=== PATIENT | male | born 2005 | race Two or more races ===

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

== ENCOUNTER 2023-03-28 22:07 | Emergency (ER) | payer OTHER ==
[~2023-03-28] VITALS: Ht 162.6 cm; Wt 72.7 kg
[2023-03-28 22:55] LABS: Alanine Aminotransferase 65 U/L (7-40); Albumin 4.7 g/dL (3.2-4.8); Alkaline Phosphatase 125 U/L (46-116); Anion Gap 9 (5-15); Aspartate Aminotransferase 30 U/L (13-40); BUN/Creatinine Ratio 9.2 (10.0-20.0); Bilirubin, Total 0.9 mg/dL (0.2-1.0); Blood Urea Nitrogen 8 mg/dL (9-23); Calcium 8.9 mg/dL (8.7-10.4); Carbon Dioxide 21 mmol/L (20-30); Chloride 105 mmol/L (98-107); Glucose 133 mg/dL (74-106); Potassium 3.5 mmol/L (3.5-5.1); Sodium 135 mmol/L (136-145); Total Protein 7.9 g/dL (5.7-8.2)
[2023-03-28 23:04] LABS: Basophils # (auto) 0.1 10 ^3/uL (0-0.2); Basophils % (auto) 0.7 % (0.0-2.0); Eosinophils # (auto) 0.1 10 ^3/uL (0-0.8); Eosinophils % (auto) 1.4 % (0.0-7.0); Hematocrit 47.8 % (41.0-53.0); Hemoglobin 16.8 g/dL (13.5-17.5); Lymphocytes # (auto) 1.1 10 ^3/uL (0.4-5.4); Lymphocytes % (auto) 15.2 % (10.0-50.0); Mean Corpuscular Hemoglobin 30.6 pg (28.0-32.0); Mean Corpuscular Hgb Conc. 35.2 g/dL (32.0-36.0); Mean Corpuscular Volume 86.9 fL (80.0-100.0); Neutrophils # (auto) 5.2 10 ^3/uL (1.6-8.6); Neutrophils % (auto) 69.7 % (37.0-80.0); Nucleated Red Blood Cells % 0.1 %; White Blood Cell 7.4 10^3/uL (4.4-10.8)
[2023-03-28 23:35] LABS: INR 1.08 (0.9-1.15); Partial Thromboplastin Time 33.2 SEC (24.5-34.5); Prothrombin Time 11.3 sec (9.3-11.8)
[2023-03-29] MEDS ORDERED: IBUP-1455 PO (01:45)
[2023-03-29 01:50] VITALS: BP 123/76; PULSE 75; RESP 18; TEMP 98; O2SAT 99
[2023-03-29] MEDS ORDERED: IBUPROFEN 600 MG TAB PO ONE (02:00)
== END 2023-03-29 02:00 | disposition home or self-care (01) ==
LOC: ER 22:07 → EDBD 22:07 → ER 03-29 02:00
DX: M94.0 Chondrocostal junction syndrome [Tietze] (principal)
CPT/HCPCS: 36415; 71045; 80053; 83735; 83880; 84484; 85025; 85610; 85730; 93005